=== PATIENT | male | born 1945 ===

== ENCOUNTER 2017-10-05 17:36 | Emergency (ER) | payer MEDICARE, MEDICAID ==
[2017-10-05 17:37] VITALS: BMI 32.8
[2017-10-05 17:42] VITALS: RESP 20; TEMP 98.7; O2SAT 97
[2017-10-05 18:03] LABS: BASO # 0.1 K/uL (0.0-0.2); BASO % 0.9 % (0.0-2.0); EOS # 0.3 K/uL (0.0-0.7); EOS % 3.6 % (0.0-4.0); HEMOGLOBIN 12.7 g/dL (12.0-18.0); LYMPH # 2.7 K/uL (1.0-4.3); MEAN CELL VOLUME 92.6 fl (80.0-94.0); MEAN CORPUSCULAR HEMOGLOBIN 30.5 pg (27.0-31.0); MEAN PLATELET VOLUME 8.8 fl (7.2-11.7); MONO # 0.6 K/uL (0.0-0.8); MONO % 8.1 % (0.0-10.0); NEUT # 3.5 K/uL (1.8-7.0); NEUT % 49.4 % (50.0-75.0); NRBC % 0.1 % (0.0-0.0); RBC 4.16 Mil/uL (4.40-5.90); RED CELL DISTRIBUTION WIDTH 12.9 % (11.5-14.5); WHITE BLOOD COUNT 7.1 K/uL (4.8-10.8)
[2017-10-05 18:11] LABS: PROTHROMBIN TIME 11.1 Seconds (9.8-13.1)
[2017-10-05 18:14] LABS: PARTIAL THROMBOPLASTIN TIME 27.1 Seconds (25.6-37.1)
[2017-10-05 18:16] LABS: ALB/GLOB RATIO 1.5 (1.0-2.1); ALBUMIN 4.5 g/dL (3.5-5.0); CALCIUM 8.6 mg/dL (8.4-10.2)
[2017-10-05] MEDS ORDERED: Morphine 4 MG/ML VIAL ONE (18:42)
--- NOTE | 2017-10-05 18:48 | RAD ---
Date of service: 10/05/2017 PROCEDURE: Radiographs of the Left Shoulder HISTORY: fall L shoulder deformity COMPARISON: No prior. FINDINGS: BONES: Anterior inferior dislocation of the left humeral head relative to the glenoid. No visible fractures. SOFT TISSUES: Normal. OTHER FINDINGS: None. IMPRESSION: Acute dislocation left humeral head relative to glenoid without identifiable fracture
--- NOTE | 2017-10-05 18:49 | RAD ---
Date of service: 10/05/2017 PROCEDURE: CHEST RADIOGRAPH, 1 VIEW HISTORY: fall trauma COMPARISON: None available. FINDINGS: LUNGS: Clear. PLEURA: No pneumothorax or pleural fluid seen. CARDIOVASCULAR: No radiographic findings to suggest acute or significant cardiovascular disease. OSSEOUS STRUCTURES: Incomplete visualization left shoulder dislocation. VISUALIZED UPPER ABDOMEN: Normal. OTHER FINDINGS: None. IMPRESSION: No active pulmonary disease.
--- NOTE | 2017-10-05 18:51 | ED PDOC ---
HPI: Trauma/Fall - HPI Time Seen by Provider: 10/05/17 17:44 Chief Complaint (Nursing): Trauma Chief Complaint (Provider): trauma, fall, intox History Per: Patient History/Exam Limitations: intoxication Onset/Duration Of Symptoms: Sudden Onset Injury Occurred (Timing): Just Before Arrival (<1) Severity: Moderate Additional Complaint(s): 72yo male admits to drinking wine today for his birthday (states Bday yesterday although registered Bday different), had a fall prior to arrival injuring L shoulder, now w loss of ROM. Arrives in sling w EMS. Denies hitting head but poor historian. Denies weakness or numbness to hand/arm. Past Medical History Reviewed: Historical Data, Nursing Documentation, Vital Signs Vital Signs: Last Vital Signs Temp 98.7 F 10/05/17 17:38 Pulse 97 H 10/05/17 17:38 Resp 20 10/05/17 17:38 BP 146/91 H 10/05/17 17:38 Pulse Ox 97 10/05/17 17:38 - Medical History PMH: HTN - Surgical History Surgical History: Endoscopy Other surgeries: hip sx - Family History Family History: States: Unknown Family Hx - Social History Alcohol: Social - Home Medications Home Medications: Ambulatory Orders Medication Instructions Recorded Allopurinol [Zyloprim] 300 mg PO DAILY 05/05/17 Lisinopril/Hydrochlorothiazide 1 tbs PO DAILY 05/05/17 [Lisinopril-Hctz 20-12.5 mg Tab] - Allergies Allergies/Adverse Reactions: Allergies Allergy/AdvReac Type Severity Reaction Status Date / Time No Known Allergies Allergy Verified 04/22/17 09:32 Review of Systems Review Of Systems: ROS cannot be obtained secondary to pt's inabilty to answer questions. (intox) Physical Exam - Reviewed Nursing Documentation Reviewed: Yes Vital Signs Reviewed: Yes - Physical Exam Appears: Positive for: Non-toxic (awake but +AOB, communicative) Head Exam: Positive for: ATRAUMATIC, NORMAL INSPECTION, NORMOCEPHALIC Skin: Positive for: Normal Color, Warm, DRY Eye Exam: Positive for: EOMI, Normal appearance, PERRL ENT: Positive for: Normal ENT Inspection Neck: Positive for: Normal, Painless ROM Cardiovascular/Chest: Positive for: Regular Rate, Rhythm Respiratory: Positive for: CNT, Normal Breath Sounds Gastrointestinal/Abdominal: Positive for: Soft. Negative for: Tenderness, Guarding Back: Positive for: Normal Inspection Extremity: Positive for: Tenderness, Other (R shoulder loss ROM and tenderness anterior defect) Neurologic/Psych: Positive for: Alert, Oriented. Negative for: Motor/Sensory Deficits - Laboratory Results Result Diagrams: 10/05/17 17:58 10/05/17 17:58 - ECG O2 Sat by Pulse Oximetry: 97 Medical Decision Making Medical Decision Makinyo male w clinical appearance L shoulder dislocation, fall w mild intoxication. Obtain labs, XRay, analgesia labs reviewed reveal mild renal insufficiency surveillance monitor maintained procedure note L shoulder reduction given clinical intoxication verbal consent obtained and procedural sedation current contraindicated but cannot wait for sobriety given risk neurovascular injury for prolonged dislocation L shoulder reduced using traction and external rotation w successful clinical appreciation w relief of pain post reduction xray ordered shoulder immobilizer placed by and tech endorse Dr Henderson pending imaging CT brain and CSpine and dispo/sobriety Disposition - Clinical Impression Clinical Impression: Shoulder dislocation - Patient ED Disposition Is Patient to be Admitted: Transfer of Care Counseled Patient/Family Regarding: Studies Performed, Diagnosis - Disposition Disposition Time: 18:56 Forms: [employer] (Armenian) Patient Signed Over To: Rosa Henderson Handoff Comments: pending CT brain/CSpine, repeat XR and sobriety
[2017-10-05 18:57] VITALS: BP 138/80; PULSE 85
--- NOTE | 2017-10-05 19:46 | ED PDOC ---
- Laboratory Results Result Diagrams: 10/05/17 17:58 10/05/17 17:58 - ECG O2 Sat by Pulse Oximetry: 97 Medical Decision Making Medical Decision Making: Time: 1999 --Patient endorsed to provider by Dr. Taylor, pending CT head and neck results and sobriety. Time: 2011 --CT head FINDINGS: Brain: Diffuse cerebral volume loss and chronic microvascular white matter changes. Ventricles: Unremarkable. Bones/joints: Unremarkable. No acute fracture. Soft tissues: Unremarkable. Sinuses: Unremarkable as visualized. Mastoid air cells: Unremarkable as visualized. IMPRESSION: No acute intracranial pathology or traumatic injury Time: 2014 --CT c-spine FINDINGS: Vertebrae: The advanced multilevel spondylosis. No high-grade canal stenosis. No acute fracture. Soft tissues: Unremarkable. Lung apices: Unremarkable as visualized. Impression: No acute C-spine traumatic injury Time: 2114 --Upon provider reevaluation, patient is medically stable and requires no further treatment in the ED at this time. Pts family (brother) at bedside to take patient home. Patient will be discharged home and advised to follow up with Dr. Edouard for renal insufficiency and orthopedist for shoulder dislocation. Counseling was provided and all questions were answered regarding diagnosis. Patient agrees to discharge plan and states he will get ortho referral from Dr. Edouard. Return if symptoms persist or worsen. Clinical Impression: Shoulder dislocation; renal insufficiency; alcohol intoxication Scribe Attestation: Documented by Kortney Mcelroy, acting as a scribe for Rosa Henderson MD. Provider Scribe Attestation: All medical record entries made by the Scribe were at my direction and personally dictated by me. I have reviewed the chart and agree that the record accurately reflects my personal performance of the history, physical exam, medical decision making, and the department course for this patient. I have also personally directed, reviewed, and agree with the discharge instructions and disposition. Disposition Counseled Patient/Family Regarding: Studies Performed, Diagnosis, Need For Followup - Clinical Impression Clinical Impression: Shoulder dislocation, Renal insufficiency, Alcohol intoxication - POA Present On Arrival: None - Disposition Referrals: [facility] [Outside] Kit Downs MD [Staff Provider] - Josemanuel Edouard MD [Family Provider] - Disposition: Routine/Home Disposition Time: 21:15 Condition: CRITICAL Additional Instructions: follow up with Dr Edouard for renal insufficiency cut down alcohol use, consider alcohol detox program follow up with orthopedics for reevaluation after shoulder dislocation in 3 days (dr downs) Instructions: Shoulder Dislocation (DC), Alcohol Abuse and Alcoholism (DC) Forms: [facility] (Upper Sorbian) Print Language: NIUEAN
--- NOTE | 2017-10-06 10:29 | CT ---
Date of service: 10/05/2017 PROCEDURE: CT HEAD WITHOUT CONTRAST. HISTORY: r/o ICH COMPARISON: None. TECHNIQUE: Axial computed tomography images were obtained through the head/brain without intravenous contrast. Coronal and sagittal reconstructed images. Radiation dose: Total exam DLP = 926.27 mGy-cm. This CT exam was performed using one or more of the following dose reduction techniques: Automated exposure control, adjustment of the mA and/or kV according to patient size, and/or use of iterative reconstruction technique. FINDINGS: HEMORRHAGE: No intracranial hemorrhage. BRAIN: No mass effect or edema. Cortical atrophy and chronic microvascular ischemic changes. VENTRICLES: Unremarkable. No hydrocephalus. CALVARIUM: Unremarkable. PARANASAL SINUSES: Unremarkable as visualized. No significant inflammatory changes. MASTOID AIR CELLS: Unremarkable as visualized. No inflammatory changes. OTHER FINDINGS: None. IMPRESSION: No acute intracranial abnormalities. No significant findings to account for the clinical presentation. Concordant results (preliminary interpretation) provided by [employer]. Procedure Completed: 19:33. Preliminary ([facility]) Report: Dictated and Authenticated: 20:12. Final Interpretation: 10:27. October 06, 2017.
--- NOTE | 2017-10-06 10:32 | CT ---
Date of service: 10/05/2017 PROCEDURE: CT Cervical Spine without contrast HISTORY: Trauma, fracture suspected COMPARISON: None available. TECHNIQUE: Axial computed tomography images were obtained of the cervical spine without the use of intravenous contrast. Coronal and sagittal reformatted images were created and reviewed. Radiation dose: Total exam DLP = 390.55 mGy-cm. This CT exam was performed using one or more of the following dose reduction techniques: Automated exposure control, adjustment of the mA and/or kV according to patient size, and/or use of iterative reconstruction technique. FINDINGS: VERTEBRAE: No fracture. Normal alignment. No destructive bony lesion. DISCS/SPINAL CANAL/NEURAL FORAMINA: No significant central canal or neural foraminal stenosis. Multilevel cervical spondylotic change primarily affecting mid and lower cervical spine. PARASPINAL SOFT TISSUES: Unremarkable. OTHER FINDINGS: None. IMPRESSION: No acute findings related to/accounting for the clinical presentation. Additional benign and/or incidental findings described above. Concordant results (preliminary interpretation) provided by [facility] [employer]. Procedure Completed: 19:37. Preliminary ([facility]) Report: Dictated and Authenticated: 20:15. Final Interpretation: 10:30. October 06, 2017.
--- NOTE | 2017-10-06 13:22 | RAD ---
Date of service: 10/05/2017 PROCEDURE: Radiographs of the Left Shoulder HISTORY: post red COMPARISON: No prior. FINDINGS: BONES: Normal. No fracture. JOINTS: Normal. Glenohumeral and acromioclavicular joints preserved. No osteoarthritis. SOFT TISSUES: Normal. OTHER FINDINGS: None. IMPRESSION: Postreduction radiographs confirm glenohumeral relationship on this limited single view study.
== END 2017-10-05 21:24 | disposition home or self-care (01) ==
LOC: H.ER 17:36
DX: S43.005A Unspecified dislocation of left shoulder joint, initial encounter (principal); W19.XXXA Unspecified fall, initial encounter; Y92.89 Other specified places as the place of occurrence of the external cause; F10.129 Alcohol abuse with intoxication, unspecified; N18.9 Chronic kidney disease, unspecified
CPT/HCPCS: 70450; 71045; 72125; 73020; 73030; 80053; 85025; 85610; 85730; 96374; 96375; 99284; G0480; J1885; J2270

== ENCOUNTER 2017-10-06 00:29 | Observation (INO) | payer MEDICARE, MEDICAID ==
[2017-10-06 00:31] VITALS: BMI 32.8
--- NOTE | 2017-10-06 02:13 | ED PDOC ---
Upper Extremity Pain/Injury Time Seen by Provider: 10/06/17 01:15 Chief Complaint (Nursing): Upper Extremity Problem/Injury Chief Complaint (Provider): Upper Extremity Problem/Injury History Per: Patient History/Exam Limitations: no limitations Onset/Duration Of Symptoms: Hrs Current Symptoms Are (Timing): Still Present Additional Complaint(s): Viraj Benites is a 72 year old male with a past medical history of hypertension and osteoarthritis who is presenting to the ED with left shoulder pain onset a few hours ago. Environmental Program Manager just discharged this pt from this ED after signout from Dr Taylor who relocated his shoulder (pt was intoxicated and fell) . He states that he took the sling off to sleep and moved it out of place. Patient offers no other medical complaints at this time. Bariatric Physician: George Grant (certified director of reservations) PMD: Josemanuel Edouard Past Medical History Reviewed: Historical Data, Nursing Documentation, Vital Signs Vital Signs: Last Vital Signs Temp 98.9 F 10/06/17 00:35 Pulse 90 10/06/17 00:35 Resp 18 10/06/17 00:35 BP 108/67 10/06/17 00:35 Pulse Ox 97 10/06/17 00:35 - Medical History PMH: Arthritis, HTN - Surgical History Surgical History: Endoscopy - Family History Family History: States: Unknown Family Hx - Social History Current smoker - smoking cessation education provided: No Alcohol: Social Drugs: Denies - Home Medications Home Medications: Ambulatory Orders Medication Instructions Recorded Allopurinol [Zyloprim] 300 mg PO DAILY 05/05/17 Acetaminophen [Tylenol Extra 500 mg PO Q4 PRN 10/06/17 Strength] [id number] Ethyl Esters 1 GM 2 gm PO BID 10/06/17 [Lovaza] Docusate [Colace] 100 mg PO BID #100 cap 10/07/17 amLODIPine [Norvasc] 5 mg PO DAILY #30 tab 10/07/17 - Allergies Allergies/Adverse Reactions: Allergies Allergy/AdvReac Type Severity Reaction Status Date / Time No Known Allergies Allergy Verified 04/22/17 09:32 Review of Systems ROS Statement: Except As Marked, All Systems Reviewed And Found Negative Musculoskeletal: Positive for: Shoulder Pain Physical Exam - Reviewed Nursing Documentation Reviewed: Yes Vital Signs Reviewed: Yes - Physical Exam Appears: Positive for: Non-toxic, No Acute Distress Head Exam: Positive for: ATRAUMATIC, NORMAL INSPECTION, NORMOCEPHALIC Skin: Positive for: Normal Color, Warm, DRY Eye Exam: Positive for: EOMI, Normal appearance, PERRL ENT: Positive for: Normal ENT Inspection Neck: Positive for: Normal, Painless ROM Cardiovascular/Chest: Positive for: Regular Rate, Rhythm. Negative for: Murmur Respiratory: Positive for: Normal Breath Sounds. Negative for: Respiratory Distress Gastrointestinal/Abdominal: Positive for: Normal Exam, Soft. Negative for: Tenderness Back: Positive for: Normal Inspection. Negative for: L CVA Tenderness, R CVA Tenderness, Vertebral Tenderness Extremity: Positive for: Tenderness (over left shoulder with difficulty abducting left arm), Capillary Refill (less than 2 s), Deformity, Other ( clinically appears that l seanudler is dislocated. however is neurovascularly intact (cap refill less than 2 sec, normal pulses, no swelling or hematoma on left arm). ). Negative for: Normal ROM, Swelling Neurologic/Psych: Positive for: Alert, Oriented. Negative for: Motor/Sensory Deficits - Laboratory Results Result Diagrams: 10/06/17 05:45 10/07/17 04:20 - ECG ECG Rhythm: Positive for: Normal QRS, Normal ST Segment, Sinus Rhythm Rate: 93 O2 Sat by Pulse Oximetry: 97 (RA) Pulse Ox Interpretation: Normal Medical Decision Making Medical Decision Making: Time: 1:55 Impression: left Shoulder dislocation Plan: --X-Ray Left Shoulder X-Ray Left Shoulder: FINDINGS: Bones/joints: Anterior dislocation of the left shoulder. The humeral head is at the anteroinferior aspect of the glenoid. Soft tissues: Normal. IMPRESSION: Anterior dislocation of the left shoulder, new since 10/05/2017. After x-ray patient was seen rolling around in his bed. then he fell asleep Used Voice Bariatric Physician Charlene, interpreter translator number: [id number] to communicate with patient who verbally agreed to the procedure for fiction and nonfiction writer prose to relocate shoulder. pt understood risks and benefits and is awake and oriented X3. Pt signed consent. Conscious sedation plan set for reduction, and patient agrees. IV fluids running. Patient is on monitoring specialist. airway equipment and co2 monitor at bedside. after pt signed consent for conscious sedation given risks and benefit, fiction and nonfiction writer prose performed Reduction of shoulder using traction and external rotation method with success. no difficulties during procedure. post procedure pt left arm and shoulder neurovascular intact. fiction and nonfiction writer prose reviewing 1 view of x-ray, shoulder appears to be relocated. Patient placed in sling and instructed not to move or take off the sling. on review of labs pt w abnormalities which he said was not part of his past medical history. Consult Hospitalist for admission of patient for hyperkalemia and renal insufficiency. He is a patient of [facility]. Potassium level of 6.7 non- hemolyzed accounts for reason to admit. EKG done. NSR. no peaked T waves. Patient can't take in PO due to conscious sedation so will wait to give kayexale. 650 am, pt more awake and answering questions. Hospitalist accepts patient for admission. Repeat X-Ray of left Shoulder: (s/p reduction procedure) FINDINGS: Bones/joints: Anatomic reduction of previously dislocated left shoulder. Elevation of the humeral head relative to the glenoid and probable pseudoarticulation with the undersurface of the acromion consistent with chronic rotator cuff tear. Question of previous resection of the distal clavicle. Soft tissues: Normal. IMPRESSION: 1. Anatomic reduction of previously dislocated left shoulder. 2. Probable chronic rotator cuff tear of the left shoulder. Scribe Attestation: Documented by Carlene Calabrese, acting as a scribe for Rosa Henderson MD. Provider Scribe Attestation: All medical record entries made by the Scribe were at my direction and personally dictated by me. I have reviewed the chart and agree that the record accurately reflects my personal performance of the history, physical exam, medical decision making, and the department course for this patient. I have also personally directed, reviewed, and agree with the discharge instructions and disposition. Disposition - Clinical Impression Clinical Impression: Shoulder pain, Anterior shoulder dislocation, Renal insufficiency, Hyperkalemia - Patient ED Disposition Is Patient to be Admitted: No Counseled Patient/Family Regarding: Studies Performed, Diagnosis, Need For Followup - Disposition Disposition Time: 06:50 Condition: STABLE
[2017-10-06] MEDS ORDERED: Oxycodone/Acetaminophen 5/325 mg Tab PO ONE (02:31)
[2017-10-06] MEDS ORDERED: Propofol 10 mg/ml Inj (20 ML) IV ONE ×3 (05:55→06:05)
[2017-10-06 06:03] LABS: BASO # 0.1 K/uL (0.0-0.2); BASO % 0.6 % (0.0-2.0); EOS % 0.1 % (0.0-4.0); LYMPH # 1.1 K/uL (1.0-4.3); LYMPH % 12.1 % (20.0-40.0); MEAN CELL VOLUME 92.6 fl (80.0-94.0); MEAN CORPUSCULAR HEMOGLOBIN 31.1 pg (27.0-31.0); MEAN CORPUSCULAR HGB CONC 33.6 g/dL (33.0-37.0); MEAN PLATELET VOLUME 8.9 fl (7.2-11.7); MONO # 0.3 K/uL (0.0-0.8); MONO % 3.7 % (0.0-10.0); NEUT # 7.4 K/uL (1.8-7.0); NEUT % 83.5 % (50.0-75.0); RBC 4.17 Mil/uL (4.40-5.90); RED CELL DISTRIBUTION WIDTH 13.4 % (11.5-14.5); WHITE BLOOD COUNT 8.9 K/uL (4.8-10.8)
[2017-10-06 06:32] LABS: ALB/GLOB RATIO 1.5 (1.0-2.1); ALBUMIN 4.7 g/dL (3.5-5.0); CALCIUM 8.4 mg/dL (8.4-10.2)
[2017-10-06] MEDS ORDERED: Insulin Regular 100 units/ml SC STA (06:34)
[2017-10-06] MEDS ORDERED: Dextrose 50% SYRINGE Inj (50 ml) IVP ONE (06:34)
[2017-10-06] MEDS ORDERED: Sodium Chloride 0.9% 1,000 ML IV STA (06:46)
[2017-10-06] MEDS ORDERED: Sod Polystyrene Sulf 15 gm/60 ml Susp PO ONE (06:48)
[2017-10-06] MEDS ORDERED: Sodium Bicarbonate 7.5% (0.9 MEQ/ML) 50ML INJ IV ONE (06:48)
[2017-10-06] MEDS ORDERED: Sod Polystyrene Sulf 15 gm/60 ml Susp ONE (06:50)
[2017-10-06] MEDS ORDERED: Insulin Regular 100 units/ml ONE (06:51)
[2017-10-06] MEDS ORDERED: Dextrose 50% SYRINGE Inj (50 ml) ONE (06:52)
[2017-10-06] MEDS ORDERED: Calcium Chloride 1000 mg/10 ml Syringe IV ONE (07:56)
[2017-10-06] MEDS ORDERED: Sodium Chloride 0.9% 1,000 ML IV SCH (08:00)
--- NOTE | 2017-10-06 08:39 | CP.PCM.HP ---
History of Present Illness - History of Present Illness History of Present Illness: PT is a 72 year old male with a past medical history of hypertension and osteoarthritis who is presenting to the ED with shoulder pain after originally coming to ED and getting his shoulder reduced. He somehow dislocated his shoulder again and presented to ED for a second time where blood work revealed hyperkalemia and acute renal failure. PT was given d50 with insulin as well as bicarb and kayexelate. He states that he took the sling of to sleep and thinks he dislocated the shoulder again. Patient offers no other medical complaints at this time. Pt only pmhx is that of HTN and has a possible ETOH history as his ETOH level was mildly positive. PMD: Josemanuel Edouard PMHX: HTN, Arthritis PSHX: EGD in past, results unknown Allergies: NKDA Social history: occasional ETOH Temp 98.9 F 10/06/17 00:35 Pulse 90 10/06/17 00:35 Resp 18 10/06/17 00:35 BP 108/67 10/06/17 00:35 Pulse Ox 97 10/06/17 00:35 14 ROS all negative except shoulder pain Ambulatory Orders Medication Instructions Recorded Allopurinol [Zyloprim] 300 mg PO DAILY 05/05/17 Lisinopril/Hydrochlorothiazide 1 tbs PO DAILY 05/05/17 [Lisinopril-Hctz 20-12.5 mg Tab] - ECG ECG Rhythm: Positive for: Normal QRS, Normal ST Segment, Sinus Rhythm Rate: 93 O2 Sat by Pulse Oximetry: 97 (RA) Pulse Ox Interpretation: Normal Impression: Possible Shoulder dislocation Plan: --X-Ray Left Shoulder X-Ray Left Shoulder: FINDINGS: Bones/joints: Anterior dislocation of the left shoulder. The humeral head is at the anteroinferior aspect of the glenoid. Soft tissues: Normal. IMPRESSION: Anterior dislocation of the left shoulder, new since 10/05/2017. Repeat X-Ray of left Shoulder: (s/p reduction procedure) FINDINGS: Bones/joints: Anatomic reduction of previously dislocated left shoulder. Elevation of the humeral head relative to the glenoid and probable pseudoarticulation with the undersurface of the acromion consistent with chronic rotator cuff tear. Question of previous resection of the distal clavicle. Soft tissues: Normal. IMPRESSION: 1. Anatomic reduction of previously dislocated left shoulder. 2. Probable chronic rotator cuff tear of the left shoulder. Present on Admission - Present on Admission Any Indicators Present on Admission: No History of DVT/PE: No History of Uncontrolled Diabetes: No Urinary Catheter: No Decubitus Ulcer Present: No Review of Systems - Constitutional Constitutional: absent: As Per HPI, Anorexia, Chills, Daytime Sleepiness, Excessive Sweating, Fatigue, Fever, Frequent Falls, Headache, Increased Appetite , Lethargy, Malaise, Night Sweats, Snoring, Sleep Apnea, Weight Gain, Weight Loss, Weakness, Other - EENT Eyes: absent: As Per HPI, Blind Spots, Blurred Vision, Change in Vision, Decreased Night Vision, Diplopia, Discharge, Dry Eye, Exophthalmos, Floaters, Irritation, Itchy Eyes, Loss of Peripheral Vision, Pain, Photophobia, Requires Corrective Lenses, Sees Flashes, Spots in Vision, Tunnel Vision, Other Visual Disturbances, Loss of Vision, Other Ears: absent: As Per HPI, Decreased Hearing, Ear Discharge, Ear Pain, Tinnitus, Abnormal Hearing, Disequilibrium, Dizziness, Other Nose/Mouth/Throat: absent: As Per HPI, Epistaxis, Nasal Congestion, Nasal Discharge, Nasal Obstruction, Nasal Trauma, Nose Pain, Post Nasal Drip, Sinus Pain, Sinus Pressure, Bleeding Gums, Change in Voice, Dental Pain, Dry Mouth, Dysphagia, Halitosis, Hoarsness, Lip Swelling, Mouth Lesions, Mouth Pain, Odynophagia, Sore Throat, Throat Swelling, Tongue Swelling, Facial Pain, Neck Pain, Neck Mass, Other - Cardiovascular Cardiovascular: absent: As Per HPI, Acrocyanosis, Chest Pain, Chest Pain at Rest , Chest Pain with Activity, Claudication, Diaphoresis, Dyspnea, Dyspnea on Exertion, Edema, Irregular Heart Rhythm, Pain Radiating to Arm/Neck/Jaw, Leg Edema, Leg Ulcers, Lightheadedness, Orthopnea, Palpitations, Paroxysmal Nocturnal Dyspnea, Pedal Edema, Radiating Pain, Rapid Heart Rate, Slow Heart Rate, Syncope, Other - Respiratory Respiratory: absent: As Per HPI, Cough, Dyspnea, Hemoptysis, Dyspnea on Exertion , Wheezing, Snoring, Stridor, Pain on Inspiration, Chest Congestion, Excessive Mucous Production, Change in Mucous Color, Pain with Coughing, Other - Gastrointestinal Gastrointestinal: absent: As Per HPI, Abdominal Pain, Belching, Bloating, Change in Bowel Habits, Change in Stool Character, Coffee Ground Emesis, Constipation, Cramping, Diarrhea, Dyspepsia, Dysphagia, Early Satiety, Excessive Flatus, Fecal Incontinence, Heartburn, Hematemesis, Hematochezia, Loose Stools, Melena, Nausea, Odynophagia, Temesmus, Vomiting, Other - Genitourinary Genitourinary: absent: As Per HPI, Change in Urinary Stream, Difficulty Urinating, Dysuria, Flank Pain, Hematuria, Pyuria, Nocturia, Urinary Incontinence, Urinary Frequency, Urinary Hesitance, Urinary Urgency, Voiding Freq/Small Amts, Freq UTI, Hx Renal/Bladder Calculi, Hx /Renal Surgery, Bladder Distension, Other - Musculoskeletal Musculoskeletal: absent: As Per HPI, Abnormal Gait, Arthralgias, Atrophy, Back Pain, Deformity, Joint Swelling, Limited Range of Motion, Loss of Height, Muscle Cramps, Muscle Weakness, Myalgias, Neck Pain, Numbness, Radiating Pain into Limb, Stiffness, Tingling, Other - Integumentary Integumentary: absent: As Per HPI, Acne, Alopecia, Bleeding Lesions, Change in Hair, Change in Nails, Change in Pigmentation, Changing Lesions, Dry Skin, Erythema, Furuncle, Hirsutism, Lesions, New Lesions, Non-Healing Lesions, Photosensitivity, Pruritus, Rash, Skin Pain, Skin Ulcer, Sores, Striae, Swelling , Unusual Bruising, Wounds, Jaundice, Other - Neurological Neurological: absent: As Per HPI, Abnormal Gait, Abnormal Hearing, Abnormal Movements, Abnormal Speech, Behavioral Changes, Burning Sensations, Confusion, Convulsions, Disequilibrium, Dizziness, Numbness, Focal Weakness, Frequent Falls , Headaches, Lack of Coordination, Loss of Vision, Memory Loss, Paresthesias, Radicular Pain, Restless Legs, Sensory Deficit, Syncope, Tingling, Tremor, Vertigo, Weakness, Other Visual Disturbances, Other - Psychiatric Psychiatric: absent: As Per HPI, Abnormal Sleep Pattern, Anhedonia, Anxiety, Auditory Hallucinations, Behavioral Changes, Change in Appetite, Change in Libido, Confusion, Depression, Difficulty Concentrating, Hallucinations, Homicidal Ideation, Hopelessness, Irritability, Memory Loss, Mood Swings, Panic Attacks, Paranoia, Suicidal Ideation, Visual Hallucinations, Tactile Hallucinations, Other - Endocrine Endocrine: absent: As Per HPI, Change in Body Appearance, Change in Libido, Cold Intolorance, Deepening of Voice, Excessive Sweating, Fatigue, Flushing, Heat Intolorance, Increase in Ring/Shoe/Hat Size, Palpitations, Polydipsia, Polyphagia, Polyuria, Other - Hematologic/Lymphatic Hematologic: absent: As Per HPI, Easy Bleeding, Easy Bruising, Lymphadenopathy, Other Past Patient History - Past Medical History & Family History Past Medical History?: Yes - Past Social History Alcohol: Social Drugs: Denies - CARDIAC Hx Hypertension: Yes - HEENT Hx HEENT Problems: Yes Hx Cataracts: Yes - MUSCULOSKELETAL/RHEUMATOLOGICAL Hx Arthritis: Yes - PSYCHIATRIC Hx Substance Use: No - SURGICAL HISTORY Hx Surgeries: Yes Hx Joint Replacement: Yes (LEFT HIP) - ANESTHESIA Hx Anesthesia: Yes Hx Anesthesia Reactions: No Hx Malignant Hyperthermia: No Meds Allergies/Adverse Reactions: Allergies Allergy/AdvReac Type Severity Reaction Status Date / Time No Known Allergies Allergy Verified 04/22/17 09:32 Physical Exam - Head Exam Head Exam: ATRAUMATIC, NORMAL INSPECTION, NORMOCEPHALIC - Eye Exam Eye Exam: EOMI, Normal appearance Pupil Exam: NORMAL ACCOMODATION, PERRL - ENT Exam ENT Exam: Mucous Membranes Moist - Neck Exam Neck exam: Positive for: Normal Inspection - Respiratory Exam Respiratory Exam: Clear to Auscultation Bilateral, NORMAL BREATHING PATTERN - Cardiovascular Exam Cardiovascular Exam: REGULAR RHYTHM - GI/Abdominal Exam GI & Abdominal Exam: Normal Bowel Sounds - Expanded Upper Extremities Exam Left Shoulder exam: swelling, tenderness, tenderness over AC joint - Back Exam Back exam: NORMAL INSPECTION - Neurological Exam Neurological exam: Alert - Skin Skin Exam: Dry, Intact, Warm Results - Vital Signs Recent Vital Signs: Last Vital Signs Temp 98.2 F 10/06/17 06:14 Pulse 93 H 10/06/17 07:03 Resp 16 10/06/17 07:03 BP 128/68 10/06/17 07:03 Pulse Ox 97 10/06/17 07:03 - Labs Result Diagrams: 10/06/17 05:45 10/06/17 05:45 Labs: Laboratory Results - last 24 hr 10/06/17 10/06/17 05:45 05:45 WBC 8.9 RBC 4.17 L Hgb 13.0 Hct 38.6 MCV 92.6 MCH 31.1 H MCHC 33.6 RDW 13.4 Plt Count 184 MPV 8.9 Neut % (Auto) 83.5 H Lymph % (Auto) 12.1 L Edmonson % (Auto) 3.7 Eos % (Auto) 0.1 Baso % (Auto) 0.6 Neut # (Auto) 7.4 H Lymph # (Auto) 1.1 Edmonson # (Auto) 0.3 Eos # (Auto) 0.0 Baso # (Auto) 0.1 Sodium 140 Potassium 6.7 H* D Chloride 105 Carbon Dioxide 16 L Anion Gap 26 H BUN 37 H Creatinine 1.8 H Est GFR ( Amer) 45 Est GFR (Non-Af Amer) 37 Random Glucose 94 Calcium 8.4 Total Bilirubin 0.5 AST 45 ALT 44 Alkaline Phosphatase 67 Total Protein 7.8 Albumin 4.7 Globulin 3.1 Albumin/Globulin Ratio 1.5 Alcohol, Quantitative 15 H - EKG Data EKG Interpreted by: ER Physician Assessment & Plan - Assessment and Plan (Free Text) Assessment: PT with two shoulder separations and reduced shoulder by ED who comes in with hyperkalemia and and Acute renal failure Plan: 1) Hyperkalemia at 6.7- possible medication induced with renal failure and KAREEN inhibitor - ?? hemolysis - continue with D50 and insulin as well bicarb and kayexelate - EKG doesn't show peaked twaves -Nephrology consulted with Dr. Arredondo - telemtry monitoring - repeat stat K and possible calcium gluconate if no improvement 2) Acute renal faulure - continue with iv fluid hydration - hold bp meds for now with kareen inhibitor 3) left shoulder separation and reduced - ortho to consult with Karissa Brock - pain control with percocet 4) ETOH level mild positive - CIWA protocol - Date & Time Date: 10/06/17 Time: 08:48
[2017-10-06] MEDS ORDERED: Sodium Bicarbonate 8.4% 150 MEQ in Dextrose 5% In Water 1,000 ML IV SCH (08:45)
--- NOTE | 2017-10-06 09:14 | CARD ---
APPROVED REPORT Date of service: 10/06/2017 EKG Measurement Heart [id number] <Conclusion> Normal sinus rhythm Inferior infarct, age undetermined Abnormal ECG
[2017-10-06 09:27] LABS: CALCIUM 8.1 mg/dL (8.4-10.2)
--- NOTE | 2017-10-06 12:57 | US ---
Date of service: 10/06/2017 PROCEDURE: Ultrasound of the Kidneys HISTORY: renal insufficiency COMPARISON: None available. TECHNIQUE: Sonogram of the kidneys. FINDINGS: RIGHT KIDNEY: Measures: 4.4 x 4.5 x 11.4 cm. Normal in size, contour and echogenicity. No stone, solid mass lesion or hydronephrosis visualized. Incidental finding: Solitary lower pole cyst 0.8 x 0.9 x 1.5 cm. LEFT KIDNEY: Measures: 4.4 x 5 x 11.8 cm. Normal in size, contour and echogenicity. No stone, solid mass lesion or hydronephrosis visualized. Incidental finding(s): Multiple simple cysts the largest in the upper pole 2.3 x 2.1 cm OTHER FINDINGS: None. IMPRESSION: No significant or acute findings to account for/ related to the clinical presentation.
[2017-10-06 13:07] LABS: SQUAMOUS EPITHIAL < 1 /hpf (0-5); URINE BILIRUBIN NEGATIVE (NEGATIVE); URINE BLOOD NEGATIVE (NEGATIVE); URINE CLARITY CLEAR (Clear); URINE COLOR YELLOW (YELLOW); URINE GLUCOSE (UA) NEG (Normal); URINE LEUKOCYTE ESTERASE NEG Leu/uL (Negative); URINE PROTEIN NEGATIVE (NEGATIVE); URINE UROBILINOGEN 0.2-1.0 mg/dL (0.2-1.0)
--- NOTE | 2017-10-06 13:32 | RAD ---
Date of service: 10/06/2017 PROCEDURE: Radiographs of the Left Shoulder HISTORY: shoulder pain COMPARISON: No prior. FINDINGS: BONES: No acute fracture identified. JOINTS: Anterior inferior dislocation of the left humeral head relative to the glenoid. SOFT TISSUES: Normal. OTHER FINDINGS: None. IMPRESSION: Anterior inferior dislocation of the left humeral head relative to the glenoid. Concordant findings (preliminary report) provided by [email or web address].
--- NOTE | 2017-10-06 13:34 | RAD ---
Date of service: 10/06/2017 PROCEDURE: Radiographs of the Left Shoulder HISTORY: dislocation COMPARISON: 10/06/2017. 02:02. FINDINGS: BONES: Normal. No fracture. JOINTS: High riding humeral head relative to the glenoid. Anatomic reduction of the humeral head otherwise noted. SOFT TISSUES: Normal. OTHER FINDINGS: None. IMPRESSION: Anatomic alignment following reduction left glenohumeral relationship. Concordant findings (preliminary report) provided by [facility].
[2017-10-06 17:13] LABS: BLOOD UREA NITROGEN 36 mg/dl (9-20); GFR AFRICAN-AMERICAN > 60; GFR NON-AFRICAN AMERICAN 50
[2017-10-07 06:22] LABS: ALB/GLOB RATIO 1.3 (1.0-2.1); ALBUMIN 3.7 g/dL (3.5-5.0); ALT/SGPT 29 U/L (21-72); AST/SGOT 39 U/L (17-59); BLOOD UREA NITROGEN 27 mg/dl (9-20); CALCIUM 8.5 mg/dL (8.4-10.2); GFR AFRICAN-AMERICAN > 60; GFR NON-AFRICAN AMERICAN 59
--- NOTE | 2017-10-07 06:35 | CON ---
Copied To: Paul Kay MD Attending MD: Paul Kay MD DATE: 10/06/2017 [facility] NEPHROLOGY CONSULTATION HISTORY OF PRESENT ILLNESS: The patient is a 72-year-old male with past medical history of hypertension, gout, and osteoarthritis, presented to the ED with shoulder pain with recent ED visit for shoulder dislocation, again found to have shoulder dislocation. Blood work revealed marked hyperkalemia and acute kidney injury for which Nephrology has been consulted. The patient reports being in his usual state of health prior to recent shoulder dislocation. The patient otherwise reports feeling well. Denies any other pain other than that associated with his left shoulder dislocation; was not using any pain medication other than Tylenol; the patient was taking his antihypertensive medications regularly which included lisinopril, hydrochlorothiazide. The patient otherwise denies any decreased urination; denies any nausea, vomiting, or diarrhea. PAST MEDICAL HISTORY: As above. SOCIAL HISTORY: Previous smoker, occasional alcohol drinker. FAMILY HISTORY: Unknown per patient. REVIEW OF SYSTEMS: CONSTITUTIONAL: Denies any fevers or chills, has lost some weight that he attributes to dieting. No anorexia. HEENT: Denies any difficulty swallowing. RESPIRATORY: Denies any dyspnea. CARDIOVASCULAR: Denies any chest pain or palpitations. Occasional swelling in legs reported. GASTROINTESTINAL: As per HPI. GENITOURINARY: Denies any difficulty urinating. No dysuria. MUSCULOSKELETAL: Reports muscle cramps. Otherwise, no other significant pain. SKIN: Denies any pruritus. PSYCHIATRIC: Denies any anxiety or depression. NEURO: Reports some issues with balance. PHYSICAL EXAMINATION: VITAL SIGNS: This evening blood pressure 156/83, heart rate 79, respirations 20, temperature 97.9, O2 sat 100% on room air. GENERAL: No distress. Conversing coherently in full sentences. HEENT: Moist mucous membranes. Nonicteric. No cervical lymphadenopathy. RESPIRATORY: Lungs clear to auscultation bilaterally. No rales, no rhonchi, no wheezes. CARDIOVASCULAR: Heart sounds. S1, S2 normal. No murmurs, gallops, or rub. GASTROINTESTINAL: Soft, nontender, nondistended. GENITOURINARY: No bladder distention. EXTREMITIES: No lower leg edema. SKIN: Warm. No cyanosis. No ulcer of feet. NEUROLOGIC: No numbness of feet. No resting tremor. PSYCHIATRIC: Normal mood. Normal affect. LABORATORY DATA: CBC: WBC 8.9, hemoglobin 13, hematocrit 38.6, platelets 184. Chemistry panel on presentation: Sodium 140, potassium 6.7, chloride 105, bicarb 16, BUN 37, creatinine 1.8, glucose 94, calcium 8.4. AST 45, ALT 44, albumin 4.7. Urine studies obtained after the patient got significant amount of IV fluids. Specific gravity 1.020. Negative protein, negative glucose, negative ketones. Blood negative. Renal ultrasound directly visualized, not showing any significantly increased renal echogenicity, no hydronephrosis. ASSESSMENT AND PLAN: 1. Hyperkalemia. Etiology not completely clear. The patient may have been volume depleted in the setting of being on diuretic and angiotensin-converting enzyme inhibitor; (high albumin, possibly indicative of hemoconcentration), angiotensin-converting enzyme inhibitor also contributing via decreased distal tubular aldosterone activity; the patient denies being on any nonsteroidal anti-inflammatory drugs, no evidence of rhabdomyolysis; the patient also with increased anion gap as well as acidosis on presentation which may have also been contributory to the hyperkalemia. The patient treated successfully medically with Kayexalate; forced diuresis with full bicarbonate drip and intravenous Lasix as well as fludrocortisone to enhance this particular mineralocorticoid activity. We will discontinue bicarbonate drip. Keep the patient on low potassium diet. Avoid nonsteroidal anti-inflammatory drugs and continue to hold angiotensin-converting enzyme inhibitor for now. 2. Acute kidney injury. Serum creatinine improving with intravenous fluids, going from 1.8 to 1.4 indicative of prerenal azotemia; the patient has already received significant amount of intravenous fluids, so we will hold off on further intravenous fluids, especially as we gave a dose of fludrocortisone, which can cause significant sodium retention and hypervolemia. 3. Anion gap metabolic acidosis. Possibility to alcoholic ketosis; anion gap already corrected. 4. Hypertension. Blood pressure currently elevated. May need to give additional Lasix dose after having given significant amount of intravascular volume repletion; agree with giving amlodipine 5 mg daily for now. Thank you for this referral. We will be following up closely. Paul Kay MD
--- NOTE | 2017-10-07 08:23 | CP.PCM.CON ---
History of Present Illness - History of Present Illness History of Present Illness: Orthopedic consultation Patient is a 72 y/o male with PMH of HTN and gout who present c/o of L shoulder pain. He presented to [facility] ER on 10/05/17 after tripping and falling onto his left shoulder at home. It was determined that the patient had suffered a L shoulder dislocation and was reduced in the ER and placed in a shoulder immobilizer. He was discharged home and admits he had removed the immobilizer, allowing complete movement of his shoulder. This resulted in a recurrent shoulder dislocation. He returned to the [facility] ER on 10/06/17 where the shoulder was again reduced and placed in an immobilizer. Dr. Sevilla was consulted for orthopedic evaluation. Currently, his pain is mild, controlled with pain medication, dull in quality and intermittent in frequency. The pain worsens with activity and alleviates with rest and immobilization. There are no associated symptoms and denies radiation of pain, numbness or tingling. He also denies CP/SOB/N/V/D/fever/FLOWERS/dysuria/melena. Review of Systems - Review of Systems All systems: reviewed and no additional remarkable complaints except Review of Systems: as per HPI Past Patient History - Past Medical History & Family History Past Medical History?: Yes Past Family History: Reviewed and not pertinent - Past Social History Smoking Status: Former Smoker Alcohol: Social Drugs: Denies - CARDIAC Hx Hypertension: Yes - HEENT Hx HEENT Problems: Yes - HEMATOLOGICAL/ONCOLOGICAL Hx AIDS: No Hx Human Immunodeficiency Virus (HIV): No - MUSCULOSKELETAL/RHEUMATOLOGICAL Hx Arthritis: Yes Hx Falls: Yes (Fell at home) Hx Gout: Yes - PSYCHIATRIC Hx Substance Use: No - SURGICAL HISTORY Hx Surgeries: Yes Hx Joint Replacement: Yes (LEFT HIP replacement) - ANESTHESIA Hx Anesthesia: Yes Hx Anesthesia Reactions: No Hx Malignant Hyperthermia: No Meds Home Medications: Home Medication List Medication Instructions Recorded Confirmed Type Docusate [Colace] 100 mg PO BID #100 cap 10/07/17 Rx amLODIPine [Norvasc] 10 mg PO DAILY #30 tab 10/07/17 Rx Allergies/Adverse Reactions: Allergies Allergy/AdvReac Type Severity Reaction Status Date / Time No Known Allergies Allergy Verified 04/22/17 09:32 - Medications Medications: Current Medications Amlodipine Besylate (Norvasc) 5 mg PO DAILY MIRELLA Last Admin: 10/06/17 11:30 Dose: Not Given Docusate Sodium (Colace) 100 mg PO BID PRN PRN Reason: Constipation Heparin Sodium (Porcine) (Heparin) 5,000 units SC Q8 MIRELLA PRN Reason: Protocol Physical Exam - Constitutional Appears: Well, No Acute Distress - Head Exam Head Exam: ATRAUMATIC, NORMOCEPHALIC - Eye Exam Eye Exam: Normal appearance, PERRL - ENT Exam ENT Exam: Mucous Membranes Moist - Respiratory Exam Respiratory Exam: Clear to Auscultation Bilateral, NORMAL BREATHING PATTERN - Cardiovascular Exam Cardiovascular Exam: +S1, +S2 - GI/Abdominal Exam GI & Abdominal Exam: Normal Bowel Sounds, Soft - Extremities Exam Additional comments: LUE: shoulder immobilizer intact, no swelling, mild tenderness about shoulder, no lesions, no erythema, no ecchymosis sensation intact AXN/MN/UN/RN motor intact MN/UN/RN radial pulse intact comps soft NT RUE: no lesions, no swelling, no tenderness sensation intact AXN/MN/UN/RN motor intact MN/UN/RN radial pulse intact comps soft NT Results - Vital Signs Recent Vital Signs: Last Vital Signs Temp 98.1 F 10/07/17 08:12 Pulse 67 10/07/17 08:12 Resp 16 10/07/17 08:12 BP 148/92 H 10/07/17 08:12 Pulse Ox 95 10/07/17 08:12 - Labs Result Diagrams: 10/06/17 05:45 10/07/17 04:20 Labs: Laboratory Results - last 24 hr 10/06/17 10/06/17 10/06/17 08:57 12:51 16:30 Sodium 141 141 Potassium 5.7 H 4.8 Chloride 108 H 105 Carbon Dioxide 19 L 24 Anion Gap 20 17 BUN 37 H 36 H Creatinine 1.5 1.4 Est GFR ( Amer) 56 > 60 Est GFR (Non-Af Amer) 46 50 Random Glucose 100 104 Calcium 8.1 L 9.0 Total Bilirubin AST ALT Alkaline Phosphatase Total Protein Albumin Globulin Albumin/Globulin Ratio Urine Color Yellow Urine Clarity Clear Urine pH 5.0 Ur Specific [place] 1.020 Urine Protein Negative Urine Glucose (UA) Neg Urine Ketones Negative Urine Blood Negative Urine Nitrate Negative Urine Bilirubin Negative Urine Urobilinogen 0.2-1.0 Ur Leukocyte Esterase Neg Urine RBC (Auto) < 1 Urine Microscopic WBC 1 Ur Squamous Epith Cells < 1 10/07/17 04:20 Sodium 138 Potassium 4.0 Chloride 105 Carbon Dioxide 27 Anion Gap 10 BUN 27 H Creatinine 1.2 Est GFR ( Amer) > 60 Est GFR (Non-Af Amer) 59 Random Glucose 113 H Calcium 8.5 Total Bilirubin 0.9 AST 39 ALT 29 Alkaline Phosphatase 58 Total Protein 6.5 Albumin 3.7 Globulin 2.9 Albumin/Globulin Ratio 1.3 Urine Color Urine Clarity Urine pH Ur Specific [place] Urine Protein Urine Glucose (UA) Urine Ketones Urine Blood Urine Nitrate Urine Bilirubin Urine Urobilinogen Ur Leukocyte Esterase Urine RBC (Auto) Urine Microscopic WBC Ur Squamous Epith Cells Assessment & Plan (1) Recurrent dislocation, left shoulder Assessment and Plan: -Dr. Sevilla recommends non-operative treatment with immobilization -CT L shoulder -pain control -medical management -may be seen as outpatient -f/u in office with orthopedic physician in network with insurance versus Dr. Henry Smart within 2 weeks, call for appt -above d/w Dr. Sevilla in agreement Status: Acute - Date & Time Date: 10/07/17 Time: 08:19 Radiology Interpretation - Plater Helper Plater Helper:: Radiologist - Study type Study type:: CT - Notes: Notes:: Accession No. : [id number] Patient Name / ID : ASHER DILL / [id number] Exam Date : 10/06/2017 06:09:57 ( Approved ) Study Comment : Sex / Age : M / 72Y Creator : Miah Das MD Dictator : Miah Das MD Project Management Instructor : [place] Farmer : Miah Das MD Approver2 : Report Date : 10/06/2017 13:33:03 My Comment : Date of service: 10/06/2017 PROCEDURE: Radiographs of the Left Shoulder HISTORY: dislocation COMPARISON: 10/06/2017. 02:02. FINDINGS: BONES: Normal. No fracture. JOINTS: High riding humeral head relative to the glenoid. Anatomic reduction of the humeral head otherwise noted. SOFT TISSUES: Normal. OTHER FINDINGS: None. IMPRESSION: Anatomic alignment following reduction left glenohumeral relationship
--- NOTE | 2017-10-07 11:09 | CP.PCM.DIS ---
<Lauren Brian - Last Filed: 10/07/17 15:47> Provider - Provider Date of Admission: 10/06/17 06:33 Attending physician: Gunnar Tena MD Time Spent in preparation of Discharge (in minutes): 30 Diagnosis - Discharge Diagnosis (1) Anterior shoulder dislocation Status: Acute (2) Hyperkalemia Status: Resolved (3) Renal insufficiency Status: Resolved (4) Alcohol intoxication Status: Acute Hospital Course - Lab Results Lab Results: Most Recent Lab Values WBC 8.9 K/uL (4.8-10.8) 10/06/17 05:45 RBC 4.17 Mil/uL (4.40-5.90) L 10/06/17 05:45 Hgb 13.0 g/dL (12.0-18.0) 10/06/17 05:45 Hct 38.6 % (35.0-51.0) 10/06/17 05:45 MCV 92.6 fl (80.0-94.0) 10/06/17 05:45 MCH 31.1 pg (27.0-31.0) H 10/06/17 05:45 MCHC 33.6 g/dL (33.0-37.0) 10/06/17 05:45 RDW 13.4 % (11.5-14.5) 10/06/17 05:45 Plt Count 184 K/uL (130-400) 10/06/17 05:45 MPV 8.9 fl (7.2-11.7) 10/06/17 05:45 Neut % (Auto) 83.5 % (50.0-75.0) H 10/06/17 05:45 Lymph % (Auto) 12.1 % (20.0-40.0) L 10/06/17 05:45 Randall % (Auto) 3.7 % (0.0-10.0) 10/06/17 05:45 Eos % (Auto) 0.1 % (0.0-4.0) 10/06/17 05:45 Baso % (Auto) 0.6 % (0.0-2.0) 10/06/17 05:45 Neut # (Auto) 7.4 K/uL (1.8-7.0) H 10/06/17 05:45 Lymph # (Auto) 1.1 K/uL (1.0-4.3) 10/06/17 05:45 Randall # (Auto) 0.3 K/uL (0.0-0.8) 10/06/17 05:45 Eos # (Auto) 0.0 K/uL (0.0-0.7) 10/06/17 05:45 Baso # (Auto) 0.1 K/uL (0.0-0.2) 10/06/17 05:45 Sodium 138 mmol/l (132-148) 10/07/17 04:20 Potassium 4.0 MMOL/L (3.6-5.0) 10/07/17 04:20 Chloride 105 mmol/L (98-107) 10/07/17 04:20 Carbon Dioxide 27 mmol/L (22-30) 10/07/17 04:20 Anion Gap 10 (10-20) 10/07/17 04:20 BUN 27 mg/dl (9-20) H 10/07/17 04:20 Creatinine 1.2 mg/dl (0.8-1.5) 10/07/17 04:20 Est GFR ( Amer) > 60 10/07/17 04:20 Est GFR (Non-Af Amer) 59 10/07/17 04:20 Random Glucose 113 mg/dL (75-110) H 10/07/17 04:20 Calcium 8.5 mg/dL (8.4-10.2) 10/07/17 04:20 Total Bilirubin 0.9 mg/dl (0.2-1.3) 10/07/17 04:20 AST 39 U/L (17-59) 10/07/17 04:20 ALT 29 U/L (21-72) 10/07/17 04:20 Alkaline Phosphatase 58 U/L (38-126) 10/07/17 04:20 Total Protein 6.5 G/DL (6.3-8.2) 10/07/17 04:20 Albumin 3.7 g/dL (3.5-5.0) 10/07/17 04:20 Globulin 2.9 gm/dL (2.2-3.9) 10/07/17 04:20 Albumin/Globulin Ratio 1.3 (1.0-2.1) 10/07/17 04:20 Urine Color Yellow (YELLOW) 10/06/17 12:51 Urine Clarity Clear (Clear) 10/06/17 12:51 Urine pH 5.0 (5.0-8.0) 10/06/17 12:51 Ur Specific [place] 1.020 (1.003-1.030) 10/06/17 12:51 Urine Protein Negative mg/dL (NEGATIVE) 10/06/17 12:51 Urine Glucose (UA) Neg mg/dL (Normal) 10/06/17 12:51 Urine Ketones Negative mg/dL (NEGATIVE) 10/06/17 12:51 Urine Blood Negative (NEGATIVE) 10/06/17 12:51 Urine Nitrate Negative (NEGATIVE) 10/06/17 12:51 Urine Bilirubin Negative (NEGATIVE) 10/06/17 12:51 Urine Urobilinogen 0.2-1.0 mg/dL (0.2-1.0) 10/06/17 12:51 Ur Leukocyte Esterase Neg [place]/uL (Negative) 10/06/17 12:51 Urine RBC (Auto) < 1 /hpf (0-3) 10/06/17 12:51 Urine Microscopic WBC 1 /hpf (0-5) 10/06/17 12:51 Ur Squamous Epith Cells < 1 /hpf (0-5) 10/06/17 12:51 U Random Total Protein 77 mg/g creat (22-128) 10/06/17 12:51 Urine Creatinine 166 mg/dL (20-370) 10/06/17 12:51 Urine Microalbumin 4.6 mg/dL 10/06/17 12:51 Microalb/Creat Ratio 27 (<30) 10/06/17 12:51 Alcohol, Quantitative 15 mg/dl (0-10) H 10/06/17 05:45 - Hospital Course Hospital Course: 72 y/o M with PMH of HTN & osteoarthritis Patient presented to ED with complaints of Left shoulder pain due to dislocation. Patient had similar complaints during a recent visit to the ED, and shoulder was reduced at that time. X ray revealed an anterior inferior dislocation of left humeral head relative to glenoid, which was reduced. Blood work done in ED found patient to be hyperkalemic (6.7) with acute renal failure (creatinine- 1.8). Patient was given D50 with insulin, Bicarb, and kayexelate. EKG done at that time was negative for peaked T waves. Renal sonograph showed both kidneys w/i normal size, contour with no stone, solid mass or hydronephrosis visualized. An incidental solitary lower pole cyst 0.8 x 0.9 x 1.5cm of right kidney was found. 1. Hyperkalemia (Resolved) -Last potassium level was w/i normal limits: 4 -Lisinopril/Hydrochlorithiazide was discontinued -Norvasc was started; Norvasc 10mg PO sent to patient's pharmacy -Patient will f/u with his TIME CLOCK REPAIRER, Dr. Edouard 2. Acute Renal Failure (Resolved) - Last creatinine was w/i normal limits: 1.2 3. Left Shoulder pain due to Recurrent Left Shoulder Dislocation -Left Upper extremity CT was performed. Discharge today pending results. -Shoulder was reduced -Left arm in sling for immobilization -Patient will follow up with Dr. Henry Rhoades in 1-2 weeks 4. Alcohol Intoxication -Urine tox was found to be elevated during admission (15). -Patient denies he is an alcoholic, stating he had one drink one day prior to admission. Discharge Exam - Head Exam Head Exam: ATRAUMATIC, NORMAL INSPECTION, NORMOCEPHALIC - Eye Exam Eye Exam: EOMI - Respiratory Exam Respiratory Exam: Clear to PA & Lateral - Cardiovascular Exam Cardiovascular Exam: REGULAR RHYTHM, +S1, +S2 - GI/Abdominal Exam GI & Abdominal Exam: Normal Bowel Sounds, Soft - Extremities Exam Additional comments: Left arm sling in place with no loss of sensation to digits - Neurological Exam Neurological exam: Oriented x3 - Psychiatric Exam Psychiatric exam: Normal Mood - Skin Skin Exam: Dry, Intact Discharge Plan - Discharge Medications Prescriptions: amLODIPine [Norvasc] 10 mg PO DAILY #30 tab Docusate [Colace] 100 mg PO BID #100 cap - Follow Up Plan Condition: STABLE Disposition: HOME/ ROUTINE Instructions: High Blood Pressure (DC), Hyperkalemia (DC), Shoulder Dislocation (DC), Renal Failure Diet (DC) Additional Instructions: appt with Dr Javan johnson- to be referred to Orthopedics Keep Shoulder Immobilizer on Appt with Dr Arriola in 1-2 wks Referrals: Kit Arriola MD [Staff Provider] - Josemanuel Edouard MD [Family Provider] - <Josefina Hernandez - Last Filed: 10/07/17 17:07> Provider - Provider Date of Admission: 10/06/17 06:33 Attending physician: Gunnar Tena MD Hospital Course - Lab Results Lab Results: Most Recent Lab Values WBC 8.9 K/uL (4.8-10.8) 10/06/17 05:45 RBC 4.17 Mil/uL (4.40-5.90) L 10/06/17 05:45 Hgb 13.0 g/dL (12.0-18.0) 10/06/17 05:45 Hct 38.6 % (35.0-51.0) 10/06/17 05:45 MCV 92.6 fl (80.0-94.0) 10/06/17 05:45 MCH 31.1 pg (27.0-31.0) H 10/06/17 05:45 MCHC 33.6 g/dL (33.0-37.0) 10/06/17 05:45 RDW 13.4 % (11.5-14.5) 10/06/17 05:45 Plt Count 184 K/uL (130-400) 10/06/17 05:45 MPV 8.9 fl (7.2-11.7) 10/06/17 05:45 Neut % (Auto) 83.5 % (50.0-75.0) H 10/06/17 05:45 Lymph % (Auto) 12.1 % (20.0-40.0) L 10/06/17 05:45 Randall % (Auto) 3.7 % (0.0-10.0) 10/06/17 05:45 Eos % (Auto) 0.1 % (0.0-4.0) 10/06/17 05:45 Baso % (Auto) 0.6 % (0.0-2.0) 10/06/17 05:45 Neut # (Auto) 7.4 K/uL (1.8-7.0) H 10/06/17 05:45 Lymph # (Auto) 1.1 K/uL (1.0-4.3) 10/06/17 05:45 Randall # (Auto) 0.3 K/uL (0.0-0.8) 10/06/17 05:45 Eos # (Auto) 0.0 K/uL (0.0-0.7) 10/06/17 05:45 Baso # (Auto) 0.1 K/uL (0.0-0.2) 10/06/17 05:45 Sodium 138 mmol/l (132-148) 10/07/17 04:20 Potassium 4.0 MMOL/L (3.6-5.0) 10/07/17 04:20 Chloride 105 mmol/L (98-107) 10/07/17 04:20 Carbon Dioxide 27 mmol/L (22-30) 10/07/17 04:20 Anion Gap 10 (10-20) 10/07/17 04:20 BUN 27 mg/dl (9-20) H 10/07/17 04:20 Creatinine 1.2 mg/dl (0.8-1.5) 10/07/17 04:20 Est GFR ( Amer) > 60 10/07/17 04:20 Est GFR (Non-Af Amer) 59 10/07/17 04:20 Random Glucose 113 mg/dL (75-110) H 10/07/17 04:20 Calcium 8.5 mg/dL (8.4-10.2) 10/07/17 04:20 Total Bilirubin 0.9 mg/dl (0.2-1.3) 10/07/17 04:20 AST 39 U/L (17-59) 10/07/17 04:20 ALT 29 U/L (21-72) 10/07/17 04:20 Alkaline Phosphatase 58 U/L (38-126) 10/07/17 04:20 Total Protein 6.5 G/DL (6.3-8.2) 10/07/17 04:20 Albumin 3.7 g/dL (3.5-5.0) 10/07/17 04:20 Globulin 2.9 gm/dL (2.2-3.9) 10/07/17 04:20 Albumin/Globulin Ratio 1.3 (1.0-2.1) 10/07/17 04:20 Urine Color Yellow (YELLOW) 10/06/17 12:51 Urine Clarity Clear (Clear) 10/06/17 12:51 Urine pH 5.0 (5.0-8.0) 10/06/17 12:51 Ur Specific [place] 1.020 (1.003-1.030) 10/06/17 12:51 Urine Protein Negative mg/dL (NEGATIVE) 10/06/17 12:51 Urine Glucose (UA) Neg mg/dL (Normal) 10/06/17 12:51 Urine Ketones Negative mg/dL (NEGATIVE) 10/06/17 12:51 Urine Blood Negative (NEGATIVE) 10/06/17 12:51 Urine Nitrate Negative (NEGATIVE) 10/06/17 12:51 Urine Bilirubin Negative (NEGATIVE) 10/06/17 12:51 Urine Urobilinogen 0.2-1.0 mg/dL (0.2-1.0) 10/06/17 12:51 Ur Leukocyte Esterase Neg [place]/uL (Negative) 10/06/17 12:51 Urine RBC (Auto) < 1 /hpf (0-3) 10/06/17 12:51 Urine Microscopic WBC 1 /hpf (0-5) 10/06/17 12:51 Ur Squamous Epith Cells < 1 /hpf (0-5) 10/06/17 12:51 U Random Total Protein 77 mg/g creat (22-128) 10/06/17 12:51 Urine Creatinine 166 mg/dL (20-370) 10/06/17 12:51 Urine Microalbumin 4.6 mg/dL 10/06/17 12:51 Microalb/Creat Ratio 27 (<30) 10/06/17 12:51 Alcohol, Quantitative 15 mg/dl (0-10) H 10/06/17 05:45 Attending/Attestation - Attestation I have personally seen and examined this patient.: Yes I have fully participated in the care of the patient.: Yes I have reviewed all pertinent clinical information, including history, physical exam and plan: Yes Notes (Text): Cleared by [facility] for d/c home CT of the Shoulder reviewed by Ortho Pt to see his PMD Dr Edouard to be referred to Ortho for ff up
[2017-10-07 12:54] VITALS: RESP 20
[2017-10-07 15:55] VITALS: PULSE 74; TEMP 98; O2SAT 95
[2017-10-07 15:56] VITALS: BP 161/89
--- NOTE | 2017-10-08 15:47 | CT ---
Date of service: 10/07/2017 PROCEDURE: LEFT SHOULDER CT WITHOUT CONTRAST HISTORY: left shoulder displacement COMPARISON: Left shoulder radiographs 10/06/2017 6:12 p.m.. TECHNIQUE: A volumetric CT acquisition was performed through the left shoulder without intravenous contrast as requested. Multiplanar reformatted datasets have been provided using various techniques. Contrast Dose: None Radiation dose:Total exam DLP = 332.96 mGy-cm. This CT exam was performed using one or more of the following dose reduction techniques: Automated exposure control, adjustment of the mA and/or kV according to patient size, and/or use of iterative reconstruction technique. FINDINGS: There is anatomic reduction of the left humeral head into its articulation with the glenoid process of the scapula. No interval fracture is appreciated. Degenerative fibrocystic changes seen related to the humeral head and there is a pseudoarticulation developing with the humeral head at the level the acromion due to mild subluxation of the humerus cephalad on a degenerative basis. Limited degenerative change are identified including the acromioclavicular but only cephalad osteophytes have developed with none appearing caudad at the joint. No destructive bony lesion is identified. Limited deformity of the distal left clavicle may be postoperative. Clinically correlate further. IMPRESSION: Adequate humeral reduction at the glenohumeral joint left shoulder without fracture appreciated. Degenerative pseudoarticulation with the acromion is appreciated likely on the basis of rotator cuff chronic injury. Questionable postoperative changes distal left clavicle. Concordant preliminary report from [facility], 10/06/2017.
== END 2017-10-07 17:45 | disposition home health service (06) ==
LOC: H.ER 00:29 → H.ERHOLD 06:33 → INTOOBSV 08:21 → OBSVTOIN 08:21 → H.TEL 16:40
PROVIDERS: ADMIT Internal Medicine; ATTEND Internal Medicine
DX: E87.5 Hyperkalemia (principal); M24.412 Recurrent dislocation, left shoulder; I10 Essential (primary) hypertension; M19.90 Unspecified osteoarthritis, unspecified site; N17.9 Acute kidney failure, unspecified; M10.9 Gout, unspecified; Z87.891 Personal history of nicotine dependence; E87.2 Acidosis; F10.129 Alcohol abuse with intoxication, unspecified; Y90.0 Blood alcohol level of less than 20 mg/100 ml
CPT/HCPCS: 36415; 73030; 73200; 76770; 80053; 81003; 82043; 82570; 84156; 85025; 93005; 94770; 96374; 96375; 96376; 99285; G0378; G0480; J1940; J2704; J7030; J7070